=== PATIENT | male | born 1955 | race Caucasian/White ===

== ENCOUNTER 2016-10-30 06:27 | Day surgery (SDC) | payer MEDICARE ==
[2016-10-29 15:56] VITALS: BMI 37.3
[~2016-10-30 06:27] MED LIST: ALPRAZolam 0.25 MG TAB PO PRN; ALPRAZolam 0.5 MG TAB PO PRN; ASPIRIN 325 MG TAB PO STA; ATORVASTATIN 80 MG TAB PO STA; NITROGLYCERIN SL TABS 0.4 MG TAB SUBLINGUAL PRN; SODIUM CHLORIDE 0.9% 1,000 ML in EMPTY BAG 1 BAG IV ONE
[2016-10-30 07:15] VITALS: TEMP 98.9
[2016-10-30] MEDS ORDERED: SODIUM CHLORIDE 0.9% 1,000 ML IV ONE (07:17)
[2016-10-30] MEDS ORDERED: fentaNYL (PF) 50 MCG/ML 2 ML AMP IV ONE (07:34)
[2016-10-30] MEDS ORDERED: diphenhydrAMINE 50 MG/ML 1 ML VIAL IVP ONE (07:34)
[2016-10-30] MEDS ORDERED: LIDOCAINE 2% INJ 20 MG/ML SQ ONE (07:36)
[2016-10-30] MEDS ORDERED: VERAPAMIL SYRINGE (5 MG/10 ML) INTRAARTER ONE (07:37)
[2016-10-30] MEDS ORDERED: IOHEXOL 350 MG/ML 100 ML BOTTLE INJ ONE (07:48)
[2016-10-30] MEDS ORDERED: RX INFO: IV CONTRAST WAS GIVEN 1 EACH MISC MISCELLANE PRN (08:03)
[2016-10-30] MEDS ORDERED: SODIUM CHLORIDE 0.9% 1,000 ML IV SCH (08:15)
[2016-10-30 08:48] VITALS: RESP 16
[2016-10-30 12:45] VITALS: BP 122/68; PULSE 72
--- NOTE | 2016-10-30 14:36 | CC ---
DATE OF SERVICE: Mr. Larios is a 61-year-old male with known history of hypertension and hyperlipidemia, who underwent a myocardial perfusion imaging that revealed basal inferolateral wall inducible ischemia. In view of that, recommendation was made regarding cardiac catheterization. The procedure as well as risks and complications were discussed with the patient who is in full understanding and agreement. PROCEDURE: Patient was brought to the [facility] in a fasting semi-sedated state after receiving fentanyl and Benadryl. He was draped and prepped in conventional fashion. Using Xylocaine anesthesia and Seldinger technique, a 6 Beninese was introduced in the right radial artery. Selective right and left coronary angiography was performed using a 5 Beninese 3-1/2 Bend right and left Lucila catheter, multiple views of the coronary artery including hemiaxial views were obtained. Following that, a 5 Beninese tight pigtail catheter was introduced into the left ventricle and a 30 degree DARDEN view of the left ventricle was obtained. Following that, catheter and sheaths were removed. Hemostasis was obtained with deployment of a TR band. There were no immediate complications. Patient was returned to his room in stable condition. FINDINGS: LEFT MAIN: This is a short-sized vessel bifurcating into left circumflex artery. Left main coronary artery is without any significant obstructive disease. LEFT ANTERIOR DESCENDING ARTERY: This is a large-size vessel reaching toward the apex with a wraparound apex segment, giving rise to one small diagonal branch. The left anterior descending artery as well as its branches have no evidence of obstructive lung disease. LEFT CIRCUMFLEX: This is a nondominant vessel, giving rise to a large obtuse marginal branch. The left circumflex as well as its branches have no evidence of obstructive coronary artery disease. RIGHT CORONARY ARTERY: This is a large dominant vessel, bifurcating distally into PDA and posterolateral segment and branches. The right coronary artery in the mid segment has a plaque of about 50%. The rest of the vessel has no high-grade stenosis. LEFT VENTRICULOGRAM: Left ventriculogram was performed in 30 degree DARDEN view and revealed normal left ventricular size and systolic function. Ejection fraction is 60%. There was no significant mitral regurgitation. HEMODYNAMICS: There was no gradient across the aortic valve. The left ventricular end-diastolic pressure was 18 mmHg. CONCLUSION: 1. Moderate disease in the mid-right coronary artery. 2. Normal left ventricular size and systolic function. RECOMMENDATIONS: In view of the finding anatomy, recommend to continue medical therapy with aggressive risk modifications being initiated. Those findings and recommendations were discussed with the patient and his family who is in full understanding and agreement.
--- NOTE | 2016-10-30 14:39 | LTR ---
October 30, 2016 RE: Joshua Larios Dear Dr. Mayo; I had the pleasure to perform cardiac catheterization on Mr. Larios at [facility] on October 30, 2016 and a full copy of the procedure note will be forwarded to you. In brief, he was found to have moderate disease in the mid-right coronary artery with a normal left ventricular size and systolic function. Based on those findings, I recommend to continue medical therapy with aggressive risk modifications being initiated including smoking cessation and depending on his progress, further recommendation will be made. Thank you again for allowing me to participate in this patient's care. Please feel to call for any questions. Sincerely yours, CHUCKIE SANTANA MD
[2016-10-31] MEDS ORDERED: LEVOTHYROXINE 125 MCG TAB PO SCH (06:30)
[2016-10-31] MEDS ORDERED: ASPIRIN 81 MG CHEW PO SCH (09:00)
[2016-10-31] MEDS ORDERED: ATORVASTATIN 20 MG TAB PO SCH (09:00)
[2016-10-31] MEDS ORDERED: LISINOPRIL-HCTZ 20-12.5 MG 1 EACH TAB PO SCH (09:00)
== END 2016-10-30 13:18 | disposition home or self-care (01) ==
LOC: CATHCVL 06:27
PROVIDERS: ATTEND Internal Medicine Interventional Cardiology
DX: I25.10 Atherosclerotic heart disease of native coronary artery without angina pectoris (principal); R94.39 Abnormal result of other cardiovascular function study; I10 Essential (primary) hypertension; E78.2 Mixed hyperlipidemia; E78.00 Pure hypercholesterolemia, unspecified; E07.9 Disorder of thyroid, unspecified; M19.90 Unspecified osteoarthritis, unspecified site; F17.210 Nicotine dependence, cigarettes, uncomplicated; Z79.82 Long term (current) use of aspirin; Z79.899 Other long term (current) drug therapy
CPT/HCPCS: 93458; C1894; C1769; J2001; J1200; Q9967; J3010; J1644

== ENCOUNTER → 2016-12-03 | Outpatient (CLI) | payer MEDICARE ==
--- NOTE | 2016-12-03 13:31 | CT ---
EXAMINATION TYPE: CT chest wo con DATE OF EXAM: 12/03/2016 1:08 PM COMPARISON: Prior CT September 19, 2016. HISTORY: Follow up to nodule CT DLP: 757 mGycm. Automated Exposure Control for Dose Reduction was Utilized. TECHNIQUE: CT scan of the thorax is performed without IV contrast. FINDINGS: LUNGS: A background of mild to moderate emphysematous changes redemonstrated bilaterally. There is st able 6 mm subpleural nodule posterior lateral left lung base on axial image 47. There is no suspiciou s new greater than 4 mm parenchymal nodule or mass identified bilaterally. There is 3 mm calcified no dule left mid lung on axial image 34 redemonstrated. Additional smaller and similar size 3 to 4 mm ca lcified nodules near this level are identified. No pleural effusion or pneumothorax is seen bilateral ly. Mild central peribronchial wall thickening is redemonstrated. MEDIASTINUM: Lack of IV contrast is noted to limit evaluation for mediastinal and especially hilar ad enopathy . Slightly enlarged noncalcified subcarinal lymph node measuring 1.7 x 1.3 cm on axial image 32 is stable. No new adenopathy is seen. Prominent calcified subcentimeter left hilar lymph nodes ar e noted. There is moderate coronary artery calcification. No cardiomegaly or pericardial effusion is seen. There is mild to moderate calcified atherotic change of aorta and branch vessels. OTHER: Prominent multilevel spurring in visualized spine is seen. IMPRESSION: No suspicious greater than 4 mm noncalcified parenchymal nodule or mass is present. Stabl e slightly enlarged noncalcified subcarinal and left peribronchial lymph node.
== END | disposition home or self-care (01) ==
LOC: RADCTMAIN 12:51
PROVIDERS: ATTEND Internal Medicine
DX: R59.0 Localized enlarged lymph nodes (principal)
CPT/HCPCS: 71250

== ENCOUNTER → 2017-05-08 | Outpatient (CLI) | payer MEDICARE ==
--- NOTE | 2017-05-08 13:57 | CT ---
EXAMINATION TYPE: CT chest wo con DATE OF EXAM: 05/08/2017 COMPARISON: Prior chest CT without contrast 12/03/2016 HISTORY: Pulmonary Nodules CT DLP: 596.7 mGycm. Automated Exposure Control for Dose Reduction was Utilized. TECHNIQUE: CT scan of the thorax is performed without IV contrast. FINDINGS: LUNGS: The lungs are grossly clear, there is no concerning parenchymal mass or nodule identified. T here is no pleural effusion or pneumothorax seen. The tracheobronchial tree is patent. Centrilobular emphysematous changes are present especially in the upper lobes. Calcified 5 mm nodule present in th e left upper lobe on axial image 28 is present, additional small nodules likely calcified in the ling jennifer. Calcified nodule in the left lower lobe is stable. Right lower lobe nodule on image 27 is also s table. MEDIASTINUM: Lack of IV contrast is noted to limit evaluation for mediastinal and especially hilar ad enopathy. There are no definitive greater than 1 cm hilar or mediastinal lymph nodes. No cardiomega ly or pericardial effusion is seen. Calcified left hilar nodes are present, there are coronary artery calcifications. OTHER: No additional significant abnormality is seen. IMPRESSION: Findings compatible with old granulomatous disease. Emphysema.
== END | disposition home or self-care (01) ==
LOC: RADCTMAIN 13:15
PROVIDERS: ATTEND Internal Medicine Critical Care Medicine
DX: J43.9 Emphysema, unspecified (principal)
CPT/HCPCS: 71250

== ENCOUNTER → 2020-07-17 | Outpatient (CLI) | payer MEDICARE ==
--- NOTE | 2020-07-17 12:47 | CT ---
EXAMINATION TYPE: CT abdomen pelvis w con DATE OF EXAM: 07/17/2020 COMPARISON: None HISTORY: Stomach is hard, (LLQ pain) CT DLP: 3417.3 mGycm Automated exposure control for dose reduction was used. CONTRAST: CT scan of the abdomen pelvis is performed with IV Contrast, patient injected with 100 mL of Isovue 3 00. FINDINGS- LUNG BASES-calcified granuloma left lower lobe measuring 4 mm. Subsegmental changes at the right lung base most typical of atelectasis. Additional calcified granuloma along the medial margin of the left lower lobe.. LIVER/GB- No gross abnormality is appreciated. PANCREAS- No gross abnormality is seen. SPLEEN-tiny splenic granuloma noted. ADRENALS- No gross abnormality is seen. KIDNEYS/BLADDER- no hydronephrosis nephrolithiasis. Tiny hypodensity within the anterior mid right co rtex too small to characterize.. BOWEL-diverticulosis with no CT evidence of diverticulitis. Small hiatal hernia. LYMPH NODES- No greater than 1cm abdominal or pelvic lymph nodes areappreciated. OSSEOUS STRUCTURES-hypertrophic and degenerative changes of the spine. Arthropathy of the hips. Large anterior osteophytes are seen with multilevel facet arthropathy and suspected foraminal encroachment .. OTHER- small fat-containing periumbilical hernia noted. Mild bladder wall thickening likely related to incomplete distention. Atherosclerotic change of the aorta and its sidebranches with significant d isease of the SMA. Subcutaneous nonspecific edema posteriorly near the paraspinal line and posterior to the spinous processes demonstrate hypertrophic change. Finding nonspecific. IMPRESSION- 1. Small fat-containing periumbilical hernia. 2. Diverticulosis with no CT evidence of diverticulitis. 3. Pulmonary granuloma. 4. Atherosclerotic change of the aorta with severe changes involving the common iliac arteries and SM A. 5. Severe hypertrophic and degenerative disc disease. Correlate for canal stenosis and foraminal encr oachment.
== END | disposition home or self-care (01) ==
LOC: RADCTMAIN 10:36
PROVIDERS: ATTEND Internal Medicine
DX: K42.9 Umbilical hernia without obstruction or gangrene (principal); J84.10 Pulmonary fibrosis, unspecified; I70.0 Atherosclerosis of aorta; R10.32 Left lower quadrant pain
CPT/HCPCS: 82565; 84520; 74177; Q9967 ×2

== ENCOUNTER → 2020-08-14 | Outpatient (CLI) | payer MEDICARE ==
[~2020-08-14] MED LIST changes: -ALPRAZolam 0.25 MG TAB PO PRN; -ALPRAZolam 0.5 MG TAB PO PRN; -ASPIRIN 325 MG TAB PO STA; -ATORVASTATIN 80 MG TAB PO STA; -NITROGLYCERIN SL TABS 0.4 MG TAB SUBLINGUAL PRN; +REGADENOSON 0.4 MG/5 ML SYRINGE IV ONE; -SODIUM CHLORIDE 0.9% 1,000 ML in EMPTY BAG 1 BAG IV ONE
--- NOTE | 2020-08-14 11:35 | P.STRESS ---
- Stress Test Note Stress Test Results/Findings: Exam Performed: NM stress lexiscan cardiolite Exam Date: 08/14/20 Reason for Exam: SOB Height: 5 ft 8 in Weight: 270 kg Protocol: LEXISCAN Stage: NA Duration of Exercise: NA Resting Heart Rate: 66 Resting Blood Pressure: 136/70 Maximum Achieved Heart Rate: 92 Maximum Achieved Blood Pressure: 175/70 85% PMHR: NA 100% PMHR: NA METS: NA Technologist Comment: Stress Test Results/Findings: At baseline EKG showed normal sinus rhythm, normal axis, no significant ST or T wave abnormalities. Patient recieved IV infusion of Lexiscan 0.4mg and at peak infusion EKG showed no significant change from baseline with occasional PACs and PVC. Conclusions: 1. Normal EKG response to Lexiscan infusion 2. Nuclear imaging to be reported separately.
--- NOTE | 2020-08-14 17:57 | NM ---
EXAMINATION TYPE: NM stress lexiscan cardiolite DATE OF EXAM: 08/14/2020 COMPARISON: Nuclear medicine Lexiscan 10/08/2016. HISTORY: Atherosclerotic heart disease TECHNIQUE: After the intravenous administration of 10.42 mCi Tc 99m Sestamibi - Cardiolite resting S PECT images acquired 45 minutes post injection. The patient received 0.4mg Lexiscan, 26.3 mCi Tc 99m Sestamibi - Stress images obtained [address] injection FINDINGS: Review of stress and rest SPECT images demonstrates no distinct perfusion abnormality. Gated analysi s shows normal wall motion with an estimated left ventricular ejection fraction of 65 %. TID 0.91 IMPRESSION: 1. No scintigraphic evidence for reversible ischemia. 2. Ejection fraction 65%.
== END | disposition home or self-care (01) ==
LOC: RADNMMAIN 08:10
PROVIDERS: ATTEND Internal Medicine
DX: I25.10 Atherosclerotic heart disease of native coronary artery without angina pectoris (principal)
CPT/HCPCS: 93017; 78452; A9500; J2785

== ENCOUNTER → 2021-12-16 | Outpatient (CLI) | payer MEDICARE ==
--- NOTE | 2021-12-16 22:28 | CT ---
EXAMINATION TYPE: CT Chest Abd Pelvis w con DATE OF EXAM: 12/16/2021 COMPARISON: CT dated 07/17/2020 and 05/08/2017 HISTORY: h/o CAD, f/u CT DLP: 2591 mGycm Automated exposure control for dose reduction was used. CONTRAST: Multiplanar CT scan of the chest, abdomen and pelvis is performed with Oral Contrast and with IV Cont rast, patient injected with 80 mL of Isovue 300. FINDINGS: Chest: Moderate centrilobular emphysematous changes mainly involving the upper lobes. Stable calcified granu hector in the left lung base. Minimal right basal pulmonary atelectasis. Stable smaller calcified granu crissy in the lingula and left upper lobe. Stable 3 mm nodule in the right lower lobe superior segment . No definite new lung nodule or suspicious lung lesion. Patent central airways. No pleural or pericardial effusion. No gross cardiomegaly. Scattered arterial atherosclerotic calcifi cations including coronary arterial calcifications. Stable 12 mm subcarinal lymph node as well as oth er scattered subcentimeter bilateral hilar and mediastinal lymph nodes. No progressive lymphadenopath y in the chest. Degenerative changes of the thoracic spine. Abdomen pelvis: No definite hepatic focal lesion identified. Unremarkable gallbladder, spleen, pancreas, adrenals and kidneys. The urinary bladder is not distended. No prostatic enlargement. Unremarkable seminal vesicl es. Unremarkable nondistended stomach, duodenum and small bowel. No gross colonic mass. Normal append ix. Fat-containing umbilical hernia. No suspicious lymphadenopathy or sizable ascites. Extensive arterial atherosclerotic calcifications most evident involving the iliac arteries. Degenerative changes of th e lumbar spine with multilevel spinal canal stenosis and neuroforaminal stenosis. No aggressive bone lesion. IMPRESSION: 1. COPD changes. No new suspicious or progressive lung lesion. 2. No suspicious lesion or acute abnormality seen in the abdomen or the pelvis. Incidental findings a s detailed above.
== END | disposition home or self-care (01) ==
LOC: RADCTMAIN 16:16
PROVIDERS: ATTEND Internal Medicine
DX: J43.2 Centrilobular emphysema (principal); K42.9 Umbilical hernia without obstruction or gangrene; J84.10 Pulmonary fibrosis, unspecified; I25.10 Atherosclerotic heart disease of native coronary artery without angina pectoris; M47.814 Spondylosis without myelopathy or radiculopathy, thoracic region; M48.061 Spinal stenosis, lumbar region without neurogenic claudication; M47.816 Spondylosis without myelopathy or radiculopathy, lumbar region
CPT/HCPCS: 82565; 84520; 71260; 74177; 36415; Q9967

== ENCOUNTER → 2022-08-08 | Outpatient (CLI) | payer MEDICARE ==
--- NOTE | 2022-08-08 19:01 | CA ---
Transthoracic Echo Report Name: Joshua Larios Age: 66 Gender: M : 1955 Exam Date: 08/08/2022 14:47 Exam Location: [place] [facility] Ht (in): 69 Wt (lb): 225 Ordering Physician: Helen Mayo MD Attending/Referring Phys: Speech And Hearing Director Riya oYu RDCS Procedure CPT: Indications: I25.10 ATHSCL HEART DISEASE OF [place] CORONARY ART Cardiac Hx: Technical Quality: Contrast 1: Total Dose (mL): Contrast 2: Total Dose (mL): MEASUREMENTS (Male / Female) Normal Values 2D ECHO LV Diastolic Diameter PLAX 4.8 cm 4.2 - 5.9 / 3.9 - 5.3 cm LV Systolic Diameter PLAX 3.8 cm IVS Diastolic Thickness 1.1 cm 0.6 - 1.0 / 0.6 - 0.9 cm LVPW Diastolic Thickness 1.2 cm 0.6 - 1.0 / 0.6 - 0.9 cm LV Relative Wall Thickness 0.5 RV Internal Dim ED PLAX 3.5 cm LVOT Diameter 2.0 cm LA Systolic Diameter LX 4.1 cm 3.0 - 4.0 / 2.7 - 3.8 cm LA Volume 57.8 cm??? 18 - 58 / 22 - 52 cm??? DOPPLER AV Peak Velocity 190.5 cm/s AV Peak Gradient 14.5 mmHg AV Mean Velocity 116.3 cm/s AV Mean Gradient 6.3 mmHg AV Velocity Time Integral 38.6 cm LVOT Peak Velocity 127.8 cm/s LVOT Peak Gradient 6.5 mmHg AV Area Cont Eq pk 2.2 cm??? MV Area PHT 4.7 cm??? Mitral E Point Velocity 80.4 cm/s Mitral A Point Velocity 70.0 cm/s Mitral E to A Ratio 1.1 MV Deceleration Time 160.6 ms MV E' Velocity 7.5 cm/s Mitral E to MV E' Ratio 10.7 TR Peak Velocity 294.0 cm/s TR Peak Gradient 34.6 mmHg Right Ventricular Systolic Press 39.6 mmHg FINDINGS Left Ventricle Left ventricular ejection fraction is estimated at 60-65 %. Left ventricular cavity size normal. Borderline left ventricular hypertrophy. Right Ventricle Mild right ventricular dilatation. Mild pulmonary hypertension. Right Atrium Normal right atrial size. Left Atrium Normal left atrial size. Mitral Valve Structurally normal mitral valve. No mitral stenosis, regurgitation or prolapse. Aortic Valve Trileaflet aortic valve. Focal thickening of the aortic valve cusps. Mild aortic stenosis with a peak gradient of 15 mmHg and a mean gradient of 6 mmHg. Tricuspid Valve Mild tricuspid regurgitation. Pulmonic Valve Pulmonic valve not well visualized. Pericardium Normal pericardium. No pericardial effusion. Aorta Normal size aortic root and proximal ascending aorta. CONCLUSIONS Left ventricular ejection fraction 60-65% Borderline LVH RVSP 39 Mild aortic stenosis with mean gradient 6 Mild tricuspid regurgitation Previewed by: Dr. Saurabh Fox DO (Electronically Signed) Final Date: 08 August 2022 19:00
== END | disposition home or self-care (01) ==
LOC: RADECHMAIN 14:43
PROVIDERS: ATTEND Internal Medicine
DX: I08.2 Rheumatic disorders of both aortic and tricuspid valves (principal)
CPT/HCPCS: 93306